=== PATIENT | female | born 1980 | race Caucasian/White ===

== ENCOUNTER 2020-06-14 17:04 | Emergency (ER) | payer OTHER, SELFPAY ==
[~2020-06-14] VITALS: Ht 162.6 cm; Wt 72.6 kg
[2020-06-14 17:05] VITALS: BP_SYST 102
[2020-06-14 18:55] LABS: BASOPHILS # (AUTO) 0.1 K/uL (0.0-0.2); BASOPHILS % (AUTO) 1.1 % (0.0-2.0); EOSINOPHILS # (AUTO) 0.2 K/uL (0.0-0.4); EOSINOPHILS % (AUTO) 2.1 % (0.0-4.0); HEMATOCRIT 29.6 % (36-48); HEMOGLOBIN 9.1 g/dL (12.0-16.0); LYMPHOCYTES # (AUTO) 1.8 K/uL (1.0-5.5); LYMPHOCYTES % (AUTO) 23.8 % (20.5-51.5); MEAN CORPUSCULAR HEMOGLOBIN 20 pg (27-31); MEAN CORPUSCULAR HGB CONC 31 % (32-36); MEAN CORPUSCULAR VOLUME 65 fL (79.0-98.0); MONOCYTES # (AUTO) 0.7 K/uL (0.0-1.0); NEUTROPHILS # (AUTO) 4.9 K/uL (1.8-7.7); PLATELET COUNT (AUTO) 287 K/uL (130-430); RED BLOOD CELL COUNT(AUTO) 4.57 MIL/uL (4.2-6.2); RED CELL DISTRIBUTION WIDTH 19.5 % (9.0-15.0); WHITE BLOOD COUNT (AUTO) 7.7 K/uL (4.8-10.8)
[2020-06-14 19:07] LABS: CALCIUM 8.9 mg/dL (8.4-11.0); CREATININE 0.62 mg/dL (0.55-1.30); POTASSIUM 3.7 mmol/L (3.5-5.1)
[2020-06-14 19:33] LABS: ALBUMIN 3.6 g/dL (3.4-4.8); TOTAL BILIRUBIN 0.3 mg/dL (0.0-1.0)
[2020-06-14 21:35] VITALS: BP_SYST 104
== END 2020-06-14 21:35 | disposition home or self-care (01) ==
LOC: SED 17:04
DX: O20.0 Threatened abortion (principal); Z20.828 Contact with and (suspected) exposure to other viral communicable diseases; Z3A.01 Less than 8 weeks gestation of pregnancy
CPT/HCPCS: 36415; 76801; 76817; 80053; 81002; 81025; 84702-TC; 85025; 93005; 99285

== ENCOUNTER 2020-06-30 01:17 | Emergency (ER) | payer OTHER, SELFPAY ==
[~2020-06-30] VITALS: Ht 162.6 cm; Wt 72.6 kg
[2020-06-30 01:42] VITALS: BP_SYST 131
[2020-06-30] MEDS ORDERED: NS 500 ML IV ONE (02:15)
[2020-06-30] MEDS ORDERED: ONDANSETRON HCL 4 MG/2 ML VIAL IVP ONE ×2 (02:15→02:30)
[2020-06-30] MEDS ORDERED: IBUPROFEN 400 MG TABLET PO ONE (02:30)
[2020-06-30] MEDS ORDERED: FAMOTIDINE PF 20 MG/2 ML VIAL IVP ONE (02:30)
[2020-06-30 02:54] LABS: BILIRUBIN,URINE NEGATIVE (NEGATIVE); BLOOD, URINE 3+ (NEGATIVE); CLARITY/URINE CLEAR (CLEAR); COLOR,URINE YELLOW (YELLOW); GLUCOSE,URINE NEGATIVE (NEGATIVE); KETONES,URINE NEGATIVE (NEGATIVE); LEUKOCYTE ESTERASE ,URINE NEGATIVE (NEGATIVE); NITRITE, URINE NEGATIVE (NEGATIVE); PROTEIN URINE NEGATIVE (NEGATIVE); UROBILINOGEN,URINE 0.2 (0.2-1.0)
[2020-06-30 02:56] LABS: BACTERIA,URINE MODERATE /HPF (None Seen)
[2020-06-30 03:14] VITALS: BP_SYST 103
== END 2020-06-30 03:14 | disposition home or self-care (01) ==
LOC: SED 01:17
DX: O23.41 Unspecified infection of urinary tract in pregnancy, first trimester (principal); O26.891 Other specified pregnancy related conditions, first trimester; O34.81 Maternal care for other abnormalities of pelvic organs, first trimester; R10.13 Epigastric pain; K29.70 Gastritis, unspecified, without bleeding; N83.209 Unspecified ovarian cyst, unspecified side; Z3A.08 8 weeks gestation of pregnancy
CPT/HCPCS: 81000; 87086; 96361; 96374; 96375; 99284; J2405; J3490; J7040

== ENCOUNTER 2021-01-22 05:30 | Inpatient (IN) | payer OTHER, SELFPAY ==
[2021-01-21 09:08] LABS: BASOPHILS # (AUTO) 0.1 K/uL (0.0-0.2); BASOPHILS % (AUTO) 0.6 % (0.0-2.0); EOSINOPHILS # (AUTO) 0.1 K/uL (0.0-0.4); EOSINOPHILS % (AUTO) 1.4 % (0.0-4.0); HEMATOCRIT 40.7 % (36-48); HEMOGLOBIN 13.8 g/dL (12.0-16.0); LYMPHOCYTES # (AUTO) 1.7 K/uL (1.0-5.5); LYMPHOCYTES % (AUTO) 18.5 % (20.5-51.5); MEAN CORPUSCULAR HEMOGLOBIN 30 pg (27-31); MEAN CORPUSCULAR HGB CONC 34 % (32-36); MEAN CORPUSCULAR VOLUME 87 fL (79.0-98.0); MONOCYTES # (AUTO) 0.6 K/uL (0.0-1.0); MONOCYTES % (AUTO) 6.6 % (1.7-9.3); NEUTROPHILS # (AUTO) 6.8 K/uL (1.8-7.7); NEUTROPHILS % (AUTO) 72.9 % (40.0-70.0); PLATELET COUNT (AUTO) 208 K/uL (130-430); RED BLOOD CELL COUNT(AUTO) 4.66 MIL/uL (4.2-6.2); WHITE BLOOD COUNT (AUTO) 9.3 K/uL (4.8-10.8)
[2021-01-21 09:08] LABS: BILIRUBIN,URINE NEGATIVE (NEGATIVE); BLOOD, URINE NEGATIVE (NEGATIVE); CLARITY/URINE CLEAR (CLEAR); COLOR,URINE YELLOW (YELLOW); GLUCOSE,URINE NEGATIVE (NEGATIVE); KETONES,URINE NEGATIVE (NEGATIVE); LEUKOCYTE ESTERASE ,URINE 1+ (NEGATIVE); NITRITE, URINE NEGATIVE (NEGATIVE); PH,URINE 7.5 (5.0-8.0); PROTEIN URINE NEGATIVE (NEGATIVE); UROBILINOGEN,URINE 0.2 (0.2-1.0)
[2021-01-21 09:18] LABS: BACTERIA,URINE MODERATE /HPF (None Seen); MUCUS,URINE 1+ /LPF (None Seen); RBC,URINE 0-3 /HPF (0-3)
[~2021-01-22] VITALS: Ht 165.1 cm; Wt 88.0 kg
[2021-01-22 05:40] VITALS: BP_SYST 118
[2021-01-22] MEDS ORDERED: LR 1,000 ML IV SCH ×2 (05:45→09:15)
[2021-01-22] MEDS ORDERED: CEFAZOLIN 2 GM IVPB PREMIX 50 ML IV ONE ×2 (05:45→07:48)
[2021-01-22] MEDS ORDERED: MORPHINE SULFATE 10MG/10ML PF AMP EP ONE (07:48)
[2021-01-22] MEDS ORDERED: MIDAZOLAM HCL 5 MG/5 ML VIAL IVP ONE (07:48)
[2021-01-22] MEDS ORDERED: METOCLOPRAMIDE HCL 10 MG/2 ML VIAL IVP ONE (07:48)
[2021-01-22] MEDS ORDERED: ONDANSETRON HCL 4 MG/2 ML VIAL IVP ONE (07:48)
[2021-01-22] MEDS ORDERED: OXYTOCIN 10 UNIT/ML VIAL IM ONE (07:48)
[2021-01-22] MEDS ORDERED: LR 1,000 ML IV.SOLN IV ONE (07:48)
[2021-01-22] MEDS ORDERED: NS IRRIG SOLN 1000 ML IR ONE (07:48)
[2021-01-22] MEDS ORDERED: BUPIVACAINE /PF 0.75% 10 ML VIAL INJ ONE (07:48)
[2021-01-22] MEDS ORDERED: HEMABATE 250MCG/ML VIAL AMP IM ONE (08:20)
[2021-01-22] MEDS ORDERED: METHYLERGONOVINE MALEATE 0.2 MG/ML AMP ONE (08:24)
[2021-01-22] MEDS ORDERED: NALOXONE HCL 0.4 MG/ML AMP (NARCAN) IVP PRN ×2 (08:45→09:15)
[2021-01-22] MEDS ORDERED: MORPHINE SULFATE 10MG/10ML PF AMP SP SCH (08:45)
[2021-01-22] MEDS ORDERED: ONDANSETRON HCL 4 MG/2 ML VIAL IVP PRN (08:45)
[2021-01-22] MEDS ORDERED: DIPHENHYDRAMINE INJ 50 MG/ML VIAL IM PRN (08:45)
[2021-01-22] MEDS ORDERED: KETOROLAC TROMETHAMINE 60 MG/2 ML VIAL IM PRN (08:45)
[2021-01-22 09:00] VITALS: BP_SYST 94
[2021-01-22] MEDS ORDERED: METHYLERGONOVINE MALEATE 0.2 MG/ML AMP IM ONE (09:15)
[2021-01-22] MEDS ORDERED: MEASLES,MUMPS&RUBELLA VACC/PF 12500 UNIT/0.5 ML VIAL SUBQ PRN (09:15)
[2021-01-22] MEDS ORDERED: BISACODYL 10 MG/SUPPOSITORY RC PRN (09:15)
[2021-01-22] MEDS ORDERED: DIPH-TET-PERTUS Vaccine 0.5 ML VIAL (ADACEL) I.M. PRN (09:15)
[2021-01-22] MEDS ORDERED: OXYCODONE/ACETAMINOPHEN *10*mg/325 mg TABLET PO PRN (09:15)
[2021-01-22] MEDS ORDERED: ANUSOL 1 EA SUPP.RECT (PREPARATION H) RC PRN (09:15)
[2021-01-22] MEDS ORDERED: TEMAZEPAM 15 MG CAPSULE PO PRN (09:15)
[2021-01-22] MEDS ORDERED: HYDROcodone/ACETAMIN 5-325 MG TAB (NORCO/ VICODIN) PO PRN (09:15)
[2021-01-22] MEDS ORDERED: LANOLIN 7 GM OINT. TP PRN (09:15)
[2021-01-22] MEDS ORDERED: RHO(D) IMMUNE GLOBULIN/MALTOSE 1500 UNITS/1.3 ML (WINHRO) IM PRN (09:15)
[2021-01-22] MEDS: KETOROLAC TROMETHAMINE 30 MG VIAL IVP SCH ×3 (12:07→23:55)
[2021-01-22] MEDS: CEFAZOLIN 1 GM IVPB PREMIX 50 ML IV SCH ×3 (12:08→23:57)
[2021-01-22] MEDS: OXYTOCIN/0.9 % SODIUM CHLORIDE 1,000 ML IV SCH ×3 (14:15→22:37)
[2021-01-23] MEDS: KETOROLAC TROMETHAMINE 30 MG VIAL IVP SCH (06:12)
[2021-01-23] MEDS: OXYTOCIN/0.9 % SODIUM CHLORIDE 1,000 ML IV SCH (06:13)
[2021-01-23 07:08] LABS: BASOPHILS % (AUTO) 0.2 % (0.0-2.0); EOSINOPHILS # (AUTO) 0.1 K/uL (0.0-0.4); EOSINOPHILS % (AUTO) 0.5 % (0.0-4.0); LYMPHOCYTES # (AUTO) 1.2 K/uL (1.0-5.5); LYMPHOCYTES % (AUTO) 8.3 % (20.5-51.5); MEAN CORPUSCULAR HEMOGLOBIN 29 pg (27-31); MEAN CORPUSCULAR HGB CONC 34 % (32-36); MEAN CORPUSCULAR VOLUME 88 fL (79.0-98.0); MONOCYTES # (AUTO) 1.2 K/uL (0.0-1.0); MONOCYTES % (AUTO) 8.4 % (1.7-9.3); NEUTROPHILS # (AUTO) 12.1 K/uL (1.8-7.7); NEUTROPHILS % (AUTO) 82.6 % (40.0-70.0); PLATELET COUNT (AUTO) 170 K/uL (130-430); RED BLOOD CELL COUNT(AUTO) 3.76 MIL/uL (4.2-6.2); RED CELL DISTRIBUTION WIDTH 15.6 % (9.0-15.0); WHITE BLOOD COUNT (AUTO) 14.7 K/uL (4.8-10.8)
[2021-01-23] MEDS: OXYCODONE/ACETAMINOPHEN 5-325 TABLET PO PRN ×3 (09:38→20:24)
[2021-01-23] MEDS: DOCUSATE SODIUM 100 MG CAPSULE PO SCH ×2 (09:38→20:16)
[2021-01-23] MEDS: IBUPROFEN 600 MG TABLET PO SCH ×2 (12:05→17:53)
[2021-01-23] MEDS: SIMETHICONE 80 MG TAB.CHEW PO PRN (20:16)
[2021-01-23] MEDS: SENNOSIDES/DOCUSATE SODIUM 1 TAB TABLET(SENOKOT-S) PO SCH (20:16)
[2021-01-24] MEDS: IBUPROFEN 600 MG TABLET PO SCH ×4 (00:19→17:48)
[2021-01-24] MEDS: OXYCODONE/ACETAMINOPHEN 5-325 TABLET PO PRN ×4 (02:19→21:36)
[2021-01-24] MEDS: SIMETHICONE 80 MG TAB.CHEW PO PRN ×4 (02:22→21:38)
[2021-01-24] MEDS ORDERED: BACITRACIN/POLYMYXIN B SULFATE 30 GM TOPICAL OINT. TP SCH (09:00)
[2021-01-24] MEDS: DOCUSATE SODIUM 100 MG CAPSULE PO SCH ×2 (09:02→21:37)
[2021-01-24] MEDS ORDERED: NEOMY SULF/BACITRAC ZN/POLY 28 GM OINT..GM. TP PRN (17:15)
[2021-01-24] MEDS: SENNOSIDES/DOCUSATE SODIUM 1 TAB TABLET(SENOKOT-S) PO SCH (21:37)
[2021-01-25] MEDS: IBUPROFEN 600 MG TABLET PO SCH ×4 (00:06→17:57)
[2021-01-25] MEDS: OXYCODONE/ACETAMINOPHEN 5-325 TABLET PO PRN ×3 (03:21→15:59)
[2021-01-25] MEDS: SIMETHICONE 80 MG TAB.CHEW PO PRN ×4 (03:21→17:57)
[2021-01-26] MEDS: IBUPROFEN 600 MG TABLET PO SCH ×3 (00:09→12:28)
[2021-01-26] MEDS: SIMETHICONE 80 MG TAB.CHEW PO PRN ×3 (00:09→12:28)
[2021-01-26] MEDS: SENNOSIDES/DOCUSATE SODIUM 1 TAB TABLET(SENOKOT-S) PO SCH (00:10)
[2021-01-26] MEDS: OXYCODONE/ACETAMINOPHEN 5-325 TABLET PO PRN ×3 (00:10→11:16)
== END 2021-01-26 15:30 | disposition home or self-care (01) | DRG 787 ==
LOC: SPU 05:30
PROVIDERS: ADMIT Specialist; ATTEND Specialist
PROC: 0W3J0ZZ Control Bleeding in Pelvic Cavity, Open Approach (ICD-10-PCS; 2021-01-22)
PROC: 0WQFXZZ Repair Abdominal Wall, External Approach (ICD-10-PCS; 2021-01-22)
PROC: 0HB7XZZ Excision of Abdomen Skin, External Approach (ICD-10-PCS; 2021-01-22)
PROC: 10D00Z1 Extraction of Products of Conception, Low, Open Approach (ICD-10-PCS; principal; 2021-01-22 07:30)
DX: O34.13 Maternal care for benign tumor of corpus uteri, third trimester (principal); D62 Acute posthemorrhagic anemia; D25.2 Subserosal leiomyoma of uterus; O67.8 Other intrapartum hemorrhage; O99.72 Diseases of the skin and subcutaneous tissue complicating childbirth; L91.0 Hypertrophic scar; Z20.822 Contact with and (suspected) exposure to COVID-19; Z3A.38 38 weeks gestation of pregnancy; Z37.0 Single live birth
CPT/HCPCS: 36415; 81000; 85025; 86886; 86900; 86901; 90715; 94760; J0690; J1885; J2210; J2250; J2274; J2405; J2590; J2765; J3490; J7120; U0003

== ENCOUNTER 2023-01-06 07:29 | Inpatient (IN) | payer OTHER ==
[~2023-01-06] VITALS: Ht 162.6 cm; Wt 79.4 kg
[2023-01-06 07:41] VITALS: BP_SYST 120
[2023-01-06] MEDS ORDERED: KETOROLAC TROMETHAMINE 60 MG/2 ML VIAL IM ONE (08:00)
[2023-01-06 08:35] LABS: BASOPHILS # (AUTO) 0.1 K/uL (0.0-0.2); EOSINOPHILS # (AUTO) 0.2 K/uL (0.0-0.4); EOSINOPHILS % (AUTO) 1.4 % (0.0-4.0); HEMATOCRIT 43.1 % (36-48); HEMOGLOBIN 14.5 g/dL (12.0-16.0); LYMPHOCYTES # (AUTO) 1.4 K/uL (1.0-5.5); LYMPHOCYTES % (AUTO) 12.7 % (20.5-51.5); MEAN CORPUSCULAR HEMOGLOBIN 28 pg (27-31); MEAN CORPUSCULAR HGB CONC 34 % (32-36); MEAN CORPUSCULAR VOLUME 84 fL (79.0-98.0); MONOCYTES # (AUTO) 0.7 K/uL (0.0-1.0); MONOCYTES % (AUTO) 5.9 % (1.7-9.3); NEUTROPHILS # (AUTO) 8.8 K/uL (1.8-7.7); PLATELET COUNT (AUTO) 235 K/uL (130-430); RED BLOOD CELL COUNT(AUTO) 5.14 MIL/uL (4.2-6.2); RED CELL DISTRIBUTION WIDTH 13.7 % (9.0-15.0); WHITE BLOOD COUNT (AUTO) 11.1 K/uL (4.8-10.8)
[2023-01-06 08:41] LABS: CALCIUM 8.5 mg/dL (8.4-11.0); CREATININE 0.77 mg/dL (0.55-1.30)
[2023-01-06 08:45] LABS: ALBUMIN 3.4 g/dL (3.4-4.8); TOTAL BILIRUBIN 0.6 mg/dL (0.0-1.0)
[2023-01-06 08:47] LABS: BILIRUBIN,URINE NEGATIVE (NEGATIVE); CLARITY/URINE CLEAR (CLEAR); COLOR,URINE YELLOW (YELLOW); GLUCOSE,URINE NEGATIVE (NEGATIVE); KETONES,URINE NEGATIVE (NEGATIVE); LEUKOCYTE ESTERASE ,URINE 3+ (NEGATIVE); NITRITE, URINE NEGATIVE (NEGATIVE); PH,URINE 6.5 (5.0-8.0); PROTEIN URINE NEGATIVE (NEGATIVE); UROBILINOGEN,URINE 0.2 (0.2-1.0)
[2023-01-06 08:58] LABS: BLOOD, URINE TRACE (NEGATIVE)
[2023-01-06 09:07] LABS: BACTERIA,URINE FEW /HPF (None Seen)
[2023-01-06] MEDS ORDERED: PIPERACILLIN/TAZO 3.375 GM in NS 50 ML IV ONE (10:45)
[2023-01-06] MEDS ORDERED: MORPHINE 4 MG INJ. 4 MG/ML VIAL IVP PRN (11:00)
[2023-01-06] MEDS ORDERED: MORPHINE 2 MG/ML INJ. SYRINGE IVP PRN (11:00)
[2023-01-06] MEDS ORDERED: LORazepam 2 MG/ML VIAL IVP PRN (11:00)
[2023-01-06] MEDS ORDERED: ONDANSETRON HCL 4 MG/2 ML VIAL IVP PRN (11:00)
[2023-01-06] MEDS ORDERED: PIPERACILLIN/TAZOBACTAM 3.375 GM/VIAL (ZOSYN) IV ONE (11:06)
[2023-01-06] MEDS: D5/0.45 NS 1,000 ML IV SCH ×2 (11:09→11:58)
[2023-01-06 12:51] VITALS: BP_SYST 116
[2023-01-06 19:20] VITALS: BP_SYST 110
[2023-01-07] VITALS (7 sets, daily range): BP systolic 91–103
[2023-01-07 05:07] LABS: BASOPHILS # (AUTO) 0.1 K/uL (0.0-0.2); BASOPHILS % (AUTO) 0.9 % (0.0-2.0); EOSINOPHILS # (AUTO) 0.2 K/uL (0.0-0.4); EOSINOPHILS % (AUTO) 2.4 % (0.0-4.0); HEMATOCRIT 40.8 % (36-48); HEMOGLOBIN 13.5 g/dL (12.0-16.0); LYMPHOCYTES % (AUTO) 20.2 % (20.5-51.5); MEAN CORPUSCULAR HEMOGLOBIN 28 pg (27-31); MEAN CORPUSCULAR HGB CONC 33 % (32-36); MEAN CORPUSCULAR VOLUME 85 fL (79.0-98.0); MONOCYTES # (AUTO) 0.9 K/uL (0.0-1.0); MONOCYTES % (AUTO) 9.3 % (1.7-9.3); NEUTROPHILS # (AUTO) 6.7 K/uL (1.8-7.7); NEUTROPHILS % (AUTO) 67.2 % (40.0-70.0); PLATELET COUNT (AUTO) 216 K/uL (130-430); RED BLOOD CELL COUNT(AUTO) 4.79 MIL/uL (4.2-6.2); RED CELL DISTRIBUTION WIDTH 13.8 % (9.0-15.0); WHITE BLOOD COUNT (AUTO) 10.1 K/uL (4.8-10.8)
[2023-01-07 05:38] LABS: ALBUMIN 2.9 g/dL (3.4-4.8); CALCIUM 7.9 mg/dL (8.4-11.0); CREATININE 0.73 mg/dL (0.55-1.30); PHOSPHORUS 3.3 mg/dL (2.7-4.5); TOTAL BILIRUBIN 0.7 mg/dL (0.0-1.0)
[2023-01-07] MEDS: cefTRIAXone 1 GM IVPB PREMIX 50 ML IV SCH (11:16)
[2023-01-08] VITALS: BP_SYST 90
[2023-01-08] MEDS: D5/0.45 NS 1,000 ML IV SCH ×3 (00:21→13:09)
[2023-01-08 04:54] LABS: BASOPHILS # (AUTO) 0.1 K/uL (0.0-0.2); BASOPHILS % (AUTO) 0.8 % (0.0-2.0); EOSINOPHILS # (AUTO) 0.2 K/uL (0.0-0.4); EOSINOPHILS % (AUTO) 2.9 % (0.0-4.0); HEMATOCRIT 38.6 % (36-48); HEMOGLOBIN 12.7 g/dL (12.0-16.0); LYMPHOCYTES # (AUTO) 2.2 K/uL (1.0-5.5); LYMPHOCYTES % (AUTO) 26.6 % (20.5-51.5); MEAN CORPUSCULAR HEMOGLOBIN 28 pg (27-31); MEAN CORPUSCULAR HGB CONC 33 % (32-36); MEAN CORPUSCULAR VOLUME 85 fL (79.0-98.0); MONOCYTES # (AUTO) 0.8 K/uL (0.0-1.0); MONOCYTES % (AUTO) 9.3 % (1.7-9.3); NEUTROPHILS # (AUTO) 5.1 K/uL (1.8-7.7); NEUTROPHILS % (AUTO) 60.4 % (40.0-70.0); PLATELET COUNT (AUTO) 222 K/uL (130-430); RED BLOOD CELL COUNT(AUTO) 4.57 MIL/uL (4.2-6.2); RED CELL DISTRIBUTION WIDTH 13.7 % (9.0-15.0); WHITE BLOOD COUNT (AUTO) 8.4 K/uL (4.8-10.8)
[2023-01-08 05:06] LABS: C-REACTIVE PROTEIN QUANT 2.5 mg/dL (0-0.5); CALCIUM 7.9 mg/dL (8.4-11.0); CREATININE 0.66 mg/dL (0.55-1.30)
[2023-01-08 08:34] LABS: ERYTHROCYTE SEDIMENTATION RATE 22 MM/HR (0-20)
[2023-01-08] MEDS: cefTRIAXone 1 GM IVPB PREMIX 50 ML IV SCH (11:32)
[2023-01-08 11:58] VITALS: BP_SYST 101
[2023-01-08 16:23] VITALS: BP_SYST 101
[2023-01-08] MEDS ORDERED: SEVOFLURANE 15 MIN GAS INH ONE (19:49)
[2023-01-08] MEDS ORDERED: BUPIVACAINE /PF 0.5% 30 ML VIAL ONE (19:49)
[2023-01-08] MEDS ORDERED: MEPERIDINE 100 MG INJ. 100 MG/ML VIAL ONE (19:49)
[2023-01-08] MEDS ORDERED: CEFAZOLIN 2 GM IVPB PREMIX 50 ML IV ONE (19:49)
[2023-01-08] MEDS ORDERED: LR 1,000 ML IV.SOLN IV ONE (19:49)
[2023-01-08] MEDS ORDERED: GLYCOPYRROLATE 0.2 MG/ML VIAL ONE (19:49)
[2023-01-08] MEDS ORDERED: PROPOFOL 200MG/ 20ML VIAL (DIPRIVAN) IV ONE (19:49)
[2023-01-08] MEDS ORDERED: SUCCINYLCHOLINE CHLORIDE 20 MG/ML(QUELICIN) ONE (19:49)
[2023-01-08] MEDS ORDERED: fentaNYL CITRATE/PF 100 MCG/2 ML AMP ONE (19:49)
[2023-01-08] MEDS ORDERED: ROCURONIUM BROMIDE 10 MG/ML (ZEMURON) ONE (19:49)
[2023-01-08] MEDS ORDERED: DEXAMETHASONE SOD PHOSPHATE 4 MG/ML VIAL ONE (19:49)
[2023-01-08] MEDS ORDERED: NEOSTIGMINE METHYLSULFATE 1 MG/ML, 10 ML VIAL ONE (19:49)
[2023-01-08] MEDS ORDERED: WATER FOR IRRIGATION,STERILE 1,000 ML IRRIG.SOLN IR ONE (19:49)
[2023-01-08] MEDS ORDERED: MIDAZOLAM HCL 5 MG/ML VIAL (VERSED) IV ONE (19:49)
[2023-01-08] MEDS ORDERED: METOCLOPRAMIDE HCL 10 MG/2 ML VIAL ONE (19:49)
[2023-01-08] MEDS ORDERED: LIDOCAINE 1% 10 MG/ML, 20 ML MDV ONE (19:49)
[2023-01-09 00:39] VITALS: BP_SYST 110
[2023-01-09 06:56] LABS: BASOPHILS % (AUTO) 0.2 % (0.0-2.0); EOSINOPHILS % (AUTO) 0.2 % (0.0-4.0); HEMATOCRIT 39.1 % (36-48); HEMOGLOBIN 12.8 g/dL (12.0-16.0); LYMPHOCYTES # (AUTO) 1.2 K/uL (1.0-5.5); LYMPHOCYTES % (AUTO) 9.5 % (20.5-51.5); MEAN CORPUSCULAR HEMOGLOBIN 28 pg (27-31); MEAN CORPUSCULAR HGB CONC 33 % (32-36); MEAN CORPUSCULAR VOLUME 84 fL (79.0-98.0); MONOCYTES # (AUTO) 0.8 K/uL (0.0-1.0); NEUTROPHILS # (AUTO) 10.8 K/uL (1.8-7.7); NEUTROPHILS % (AUTO) 84.1 % (40.0-70.0); PLATELET COUNT (AUTO) 253 K/uL (130-430); RED BLOOD CELL COUNT(AUTO) 4.64 MIL/uL (4.2-6.2); RED CELL DISTRIBUTION WIDTH 13.5 % (9.0-15.0); WHITE BLOOD COUNT (AUTO) 12.9 K/uL (4.8-10.8)
[2023-01-09 07:21] LABS: ALBUMIN 2.8 g/dL (3.4-4.8); CALCIUM 8.3 mg/dL (8.4-11.0); CREATININE 0.62 mg/dL (0.55-1.30); TOTAL BILIRUBIN 0.4 mg/dL (0.0-1.0)
[2023-01-09 08:05] VITALS: BP_SYST 118
[2023-01-09 08:30] LABS: ERYTHROCYTE SEDIMENTATION RATE 22 MM/HR (0-20)
[2023-01-09] MEDS: D5/0.45 NS 1,000 ML IV SCH ×4 (09:00→23:00)
[2023-01-09] MEDS ORDERED: HYDROcodone/ACETAMIN 10-325 MG TAB PO PRN (10:30)
[2023-01-09] MEDS ORDERED: NALOXONE HCL 0.4 MG/ML AMP (NARCAN) IVP PRN ×2 (10:30)
[2023-01-09] MEDS ORDERED: ACETAMINOPHEN 325 MG TABLET PO PRN (10:30)
[2023-01-09] MEDS: HYDROcodone/ACETAMIN 5-325 MG TAB (NORCO/ VICODIN) PO PRN ×2 (11:26→18:02)
[2023-01-09 11:35] VITALS: BP_SYST 117
[2023-01-09 18:46] VITALS: BP_SYST 137
[2023-01-09 20:00] VITALS: BP_SYST 101
[2023-01-10 00:48] VITALS: BP_SYST 106
[2023-01-10] MEDS: D5/0.45 NS 1,000 ML IV SCH ×2 (05:00→15:00)
[2023-01-10 06:00] LABS: BASOPHILS # (AUTO) 0.1 K/uL (0.0-0.2); BASOPHILS % (AUTO) 0.8 % (0.0-2.0); EOSINOPHILS # (AUTO) 0.2 K/uL (0.0-0.4); EOSINOPHILS % (AUTO) 2.7 % (0.0-4.0); HEMATOCRIT 38.7 % (36-48); HEMOGLOBIN 12.6 g/dL (12.0-16.0); LYMPHOCYTES # (AUTO) 1.8 K/uL (1.0-5.5); LYMPHOCYTES % (AUTO) 20.2 % (20.5-51.5); MEAN CORPUSCULAR HEMOGLOBIN 28 pg (27-31); MEAN CORPUSCULAR HGB CONC 33 % (32-36); MEAN CORPUSCULAR VOLUME 85 fL (79.0-98.0); MONOCYTES # (AUTO) 0.8 K/uL (0.0-1.0); MONOCYTES % (AUTO) 9.4 % (1.7-9.3); NEUTROPHILS % (AUTO) 66.9 % (40.0-70.0); PLATELET COUNT (AUTO) 232 K/uL (130-430); RED BLOOD CELL COUNT(AUTO) 4.57 MIL/uL (4.2-6.2); RED CELL DISTRIBUTION WIDTH 13.8 % (9.0-15.0)
[2023-01-10 06:32] LABS: ALBUMIN 2.6 g/dL (3.4-4.8); CALCIUM 7.9 mg/dL (8.4-11.0); CREATININE 0.62 mg/dL (0.55-1.30); TOTAL BILIRUBIN 0.3 mg/dL (0.0-1.0)
[2023-01-10] MEDS: HYDROcodone/ACETAMIN 5-325 MG TAB (NORCO/ VICODIN) PO PRN (07:54)
[2023-01-10 07:58] VITALS: BP_SYST 111
[2023-01-10] MEDS ORDERED: ENOXAPARIN SODIUM 40 MG/0.4 ML SYRINGE SUBCUT SCH ×2 (09:00)
[2023-01-10 12:00] VITALS: BP_SYST 114
[2023-01-10 16:00] VITALS: BP_SYST 128
[2023-01-10] MEDS ORDERED: HYDR-3917 PO (16:19)
[2023-01-10 16:53] VITALS: BP_SYST 125
== END 2023-01-10 18:30 | disposition home or self-care (01) | DRG 417 ==
LOC: SED 07:29 → SMU 10:47
PROVIDERS: ADMIT Preventive Medicine Preventive Medicine/Occupational Environmental Medicine; ATTEND Preventive Medicine Preventive Medicine/Occupational Environmental Medicine
PROC: 0DNU4ZZ Release Omentum, Percutaneous Endoscopic Approach (ICD-10-PCS; 2023-01-08)
PROC: 0FT44ZZ Resection of Gallbladder, Percutaneous Endoscopic Approach (ICD-10-PCS; principal; 2023-01-08 17:38)
DX: K80.00 Calculus of gallbladder with acute cholecystitis without obstruction (principal); R65.11 Systemic inflammatory response syndrome (SIRS) of non-infectious origin with acute organ dysfunction; E88.09 Other disorders of plasma-protein metabolism, not elsewhere classified; E83.51 Hypocalcemia; R73.9 Hyperglycemia, unspecified; E66.9 Obesity, unspecified; K82.8 Other specified diseases of gallbladder; E83.52 Hypercalcemia; Z68.30 Body mass index [BMI] 30.0-30.9, adult; Z91.018 Allergy to other foods; Z79.899 Other long term (current) drug therapy
CPT/HCPCS: 36415; 76376; 76705; 78226; 80048; 80053; 81000; 83605; 83690; 83735; 84100; 85025; 85651-TC; 86140; 86886; 86900; 86901; 87040; 87086; 88304; 93005; 96365; 96372; 99285; A9537; C1727; J0330; J0690; J0696; J1100; J1650; J1885; J2001; J2175; J2250; J2543; J2704; J2710; J2765; J3010; J3490; J7120